=== PATIENT | male | born 1985 | race Two or more races ===

== ENCOUNTER 2016-08-09 13:11 | Emergency (ER) | payer OTHER ==
[~2016-08-09] VITALS: Ht 175.3 cm; Wt 81.6 kg
[~2016-08-09 13:11] MED LIST: ACETAMINOPHEN-1 EAC1 ORAL; ALBUTEROL SULF8.5 GM INH; AMOXICILLIN500 MG ORAL; AUGMENTIN 875-1 EAC1 ORAL; CYCLOBENZAPRINE10 MG ORAL; IBUPROFEN600 M1 PO; IBUPROFEN600 MG ORAL; IBUPROFEN600 MG PO; KEFLEX500 MG ORAL; NKM; NKMED; NORCO 5-325 TA1 EACH ORAL; TESSALON PERLE100 M2 ORAL
[2016-08-09] MEDS ORDERED: PROAIR HFA8.5 GM INH (13:36)
[2016-08-09] MEDS ORDERED: TYLENOL EXTRA500 MG ORAL (13:36)
[2016-08-09] MEDS ORDERED: ROBITUSSIN COU118 M4 PO (13:36)
[2016-08-09] MEDS ORDERED: PREDNISONE20 MG ORAL (13:36)
[2016-08-09] MEDS ORDERED: Ketorolac 30mg Inj IM ONE (13:45)
[2016-08-09 13:51] VITALS: BP 141/84
[2016-08-09 13:54] VITALS: BP 141/84
--- NOTE | 2016-08-09 20:48 | Emergency Room Report ---
History of Present Illness General Chief Complaint: Flu Like Symptoms Source: Patient Present Illness HPI The patient is a 31-year-old male presenting for one week of subjective fever, productive cough, and chills. The patient also admits to a 5/10 headache which is described as a dull ache to the posterior region. The patient denies sick contacts or recent travel. The patient has not tried any medications. The patient denies other symptoms including nausea, vomiting, neck pain or stiffness , blurry vision, fatigue, chest pain, shortness of breath Allergies: Coded Allergies: No Known Allergies (Unverified , 12/30/15) Patient History Past Medical History: see triage record Pertinent Family History: none Reviewed Nursing Documentation: PMH: Agreed, PSxH: Agreed Nursing Documentation-PMH Hx Cardiac Problems: Yes Review of Systems All Other Systems: negative except mentioned in HPI Physical Exam Vital Signs Date Time Temp Pulse Resp B/P Pulse Ox O2 Delivery O2 Flow Rate FiO2 08/09/16 13:16 98.2 103 20 141/84 98 Room Air Sp02 EP Interpretation: reviewed, normal General Appearance: no apparent distress, alert, GCS 15, non-toxic Head: normocephalic, atraumatic Eyes: bilateral eye PERRL, bilateral eye normal inspection ENT: hearing grossly normal, normal pharynx, no angioedema, normal voice, TMs + canals normal, uvula midline, moist mucus membranes Neck: full range of motion, no bony tend, supple/symm/no masses Respiratory: chest non-tender, no accessory muscle use, speaking full sentences , wheezing - bilat Cardiovascular #1: regular rate, rhythm, no edema Gastrointestinal: normal bowel sounds, non tender, soft, non-distended, no guarding, no rebound Rectal: deferred Musculoskeletal: back normal, gait/station normal, normal range of motion, non- tender Neurologic: alert, oriented x3, responsive, motor strength/tone normal, sensory intact, speech normal Psychiatric: judgement/insight normal, memory normal, mood/affect normal, no suicidal/homicidal ideation Skin: normal color, no rash, warm/dry, well hydrated Lymphatic: no adenopathy Medical Decision Making PA Attestation Dr. Salazar is my supervising physician. Patient management was discussed with my supervising physician Diagnostic Impression: Primary Impression: Bronchitis ER Course The patient is a 31-year-old male presenting for one week of subjective fever, productive cough, and chills. Differential diagnosis include but not limited to pharyngitis, sinusitis, AOM, bronchitis, PNA PE: No apparent distress. Afebrile No TTP over maxillary or frontal sinuses. Lungs Diffuse bilat wheezing. Good breath sounds. No accessory muscle use. Heart: RRR, no abnormal heart sounds Ears: external auditory canal clear. Non erythematous. Bilat TM intact. Cone of light present bilat. No bulging of TM. No serous fluid seen. no cervical lymphad No tonsillar exudate. Uvula midline.Oropharynx non erythematous The patient is given Toradol for pain with good relief. The patient be discharged home with a prescription for cough medication, albuterol, and a short course of steroids Last Vital Signs Date Time Temp Pulse Resp B/P Pulse Ox O2 Delivery O2 Flow Rate FiO2 08/09/16 13:56 98.2 08/09/16 13:54 98 20 141/84 98 Room Air Status: improved Disposition: HOME, SELF-CARE Condition: Improved Scripts Guaifenesin/Dextromethorphan (Robitussin Cough-Chest Dm Liq) 118 Ml Liquid 10 ML PO Q4HR, #118 ML Prov: TERZIAN,JUSTYNA P.A. 08/09/16 Prednisone* (PREDNISONE*) 20 Mg Tablet 20 MG ORAL DAILY, #5 TAB 0 Refills Prov: TERZIAN,JUSTYNA P.A. 08/09/16 Albuterol Sulfate* (PROAIR HFA*) 8.5 Gm Hfa.aer.ad 2 PUFFS INH Q6H, #8.5 GM 0 Refills Prov: TERZIAN,JUSTYNA P.A. 08/09/16 Acetaminophen* (TYLENOL EXTRA STRENGTH*) 500 Mg Tablet 500 MG ORAL Q8H Y for Prn Headache/Temp > 101, #30 TAB 0 Refills Prov: TERZIAN,JUSTYNA P.A. 08/09/16 Referrals: KATE NAVA,REFERRING (PCP) Patient Instructions: Acute Bronchitis Additional Instructions: I discussed my findings with the patient. All questions and concerns have been answered. Treatment and medication compliance have been addressed. I advised the patient that they need to follow up with PMD in 3-5 days. Return to ED if pain remains or worsens, cough worsens or remains, you notice blood in your sputum, you notice wheezing, you experience a fever, or if needed for any reason. Patient verbalized understanding of discharge instructions. JUSTYNA GAUTHIER Aug 09, 2016 20:48
== END 2016-08-09 13:50 | disposition home or self-care (01) ==
LOC: EMR 13:45
DX: J40 Bronchitis, not specified as acute or chronic (principal)
CPT/HCPCS: 96372; 99283; J1885

== ENCOUNTER 2016-08-15 08:18 | Emergency (ER) | payer OTHER ==
[~2016-08-15] VITALS: Ht 177.8 cm; Wt 86.2 kg
[~2016-08-15 08:18] MED LIST changes: +PREDNISONE20 MG ORAL; +PROAIR HFA8.5 GM INH; +ROBITUSSIN COU118 M4 PO; +TYLENOL EXTRA500 MG ORAL
[2016-08-15 08:31] VITALS: BP 129/75
--- NOTE | 2016-08-15 08:43 | Emergency Room Report ---
History of Present Illness General Chief Complaint: Upper Respiratory Illness Source: Patient Present Illness HPI Patient presents with complaints of continued cough and congestion He states that he was here recently given medications however the cough persist Patient feels ill Has mild headache Bodyache Denies any chest pain denies any back or flank pain Questionable intermittent fevers Denies any rash Allergies: Coded Allergies: No Known Allergies (Unverified , 12/30/15) Patient History Past Medical History: see triage record Pertinent Family History: none Reviewed Nursing Documentation: PMH: Agreed, PSxH: Agreed Nursing Documentation-PMH Past Medical History: No Stated History Hx Cardiac Problems: Yes Review of Systems All Other Systems: negative except mentioned in HPI Physical Exam Vital Signs Date Time Temp Pulse Resp B/P Pulse Ox O2 Delivery O2 Flow Rate FiO2 08/15/16 08:23 97.7 127 20 129/75 97 Room Air Sp02 EP Interpretation: reviewed, normal General Appearance: no apparent distress Head: normocephalic, atraumatic Eyes: bilateral eye EOMI, bilateral eye PERRL ENT: hearing grossly normal, normal pharynx, TMs + canals normal, uvula midline Neck: full range of motion, supple, no meningismus, no bony tend Respiratory: no rhonchi, no respiratory distress, no retraction, no accessory muscle use, crackles - In both lower lobes Cardiovascular #1: normal peripheral pulses, regular rate, rhythm, no edema, no gallop, no JVD, no murmur Gastrointestinal: normal bowel sounds, non tender, soft, no mass, no organomegaly, non-distended, no guarding, no hernia, no pulsatile mass, no rebound Genitourinary: no CVA tenderness Musculoskeletal: normal inspection Neurologic: oriented x3, responsive, senior software qa engineer III-XII nml as tested, motor strength/ tone normal, sensory intact Psychiatric: mood/affect normal Skin: normal color, no rash, warm/dry, palpation normal Lymphatic: normal inspection, no adenopathy Medical Decision Making Diagnostic Impression: Primary Impression: Upper respiratory infection Additional Impression: Acute bronchitis ER Course Patient's imaging study was negative Patient was here recently with similar complaints Provided with symptomatic relief patient continues to do well I feel the findings are likely in line With a viral URI Given the appropriate imaging and patient's improvement he is stable for close outpatient followup Chest X-Ray Diagnostic Results EP Interpretation: Yes Findings: no consolidation, no effusion, no pneumothorax Number of Views: 1 Last Vital Signs Date Time Temp Pulse Resp B/P Pulse Ox O2 Delivery O2 Flow Rate FiO2 08/15/16 08:31 127 20 Room Air 08/15/16 08:31 97.7 129/75 97 Status: improved Disposition: HOME, SELF-CARE Condition: Improved Scripts Promethazine HCl/Codeine (Prometh-Codein 6.25-10 mg/5 ml) 5 Ml Syrup 5 ML PO QHS for 5 Days, ML Prov: SINAN ERVIN D.O. 08/15/16 Referrals: KATE NAVA,REFERRING (PCP) Additional Instructions: Patient is provided with the discharge instructions notified to follow up with primary doctor in the next 2-3 days otherwise return to the er with any worsening symptoms. SINAN ERVIN D.O. Aug 15, 2016 08:43
[2016-08-15] MEDS ORDERED: Ketorolac 60mg Inj IM ONE (08:45)
[2016-08-15] MEDS ORDERED: LEVAQUIN500 MG ORAL (09:36)
[2016-08-15] MEDS ORDERED: PROMETH-CODEIN 65 ML PO (09:36)
[2016-08-15 09:40] VITALS: BP 125/78
--- NOTE | 2016-08-15 09:56 | Diagnostic Imaging Report ---
Indication: Cough Technique: XRAY CHEST 1 V Comparison: 08/27/13 Findings: Cardiomediastinal silhouette is stable. There is no consolidation or pleural effusion. Chronic deformity is again noted of the right clavicle. Impression: No acute cardiopulmonary disease.
== END 2016-08-15 09:44 | disposition home or self-care (01) ==
LOC: EMR 08:38
DX: J06.9 Acute upper respiratory infection, unspecified (principal); J20.9 Acute bronchitis, unspecified; R51 Headache
CPT/HCPCS: 71010; 96372; 99283

== ENCOUNTER 2016-10-02 17:33 | Emergency (ER) | payer OTHER ==
[~2016-10-02] VITALS: Ht 175.3 cm; Wt 81.6 kg
[~2016-10-02 17:33] MED LIST changes: +LEVAQUIN500 MG ORAL; +PROMETH-CODEIN 65 ML PO
[2016-10-02] MEDS: Mylanta II UD 30ml ORAL ONE (18:33)
[2016-10-02] MEDS: Lidocaine 2% Visc 15ml soln ORAL ONE (18:33)
[2016-10-02] MEDS: Dicyclomine HCl 10mg/5ml oral soln ORAL ONE (18:33)
[2016-10-02] MEDS ORDERED: TYLENOL EXTRA500 MG ORAL (19:10)
[2016-10-02] MEDS ORDERED: ZOFRAN4 M1 ORAL (19:10)
[2016-10-02] MEDS ORDERED: PEPCID20 MG ORAL (19:10)
[2016-10-02 19:49] VITALS: BP 153/93
--- NOTE | 2016-10-02 21:27 | Emergency Room Report ---
History of Present Illness General Chief Complaint: Abdominal Pain Source: Patient Present Illness HPI The patient is a 31-year-old male presenting with abdominal pain and diarrhea which began yesterday after eating at a food truck. The patient states that he has had 5 episodes of watery diarrhea since last night. She describes abdominal pain as an 8/10 dull ache to the mid upper abdomen and does not radiate. Pain is worse with defecation. The patient denies any nausea or vomiting. Pt denies melena, hematochezia,fever, chills Allergies: Coded Allergies: No Known Allergies (Unverified , 12/30/15) Patient History Past Medical History: see triage record Pertinent Family History: none Reviewed Nursing Documentation: PMH: Agreed, PSxH: Agreed Nursing Documentation-PMH Past Medical History: No Stated History Hx Cardiac Problems: Yes Review of Systems All Other Systems: negative except mentioned in HPI Physical Exam Vital Signs Date Time Temp Pulse Resp B/P Pulse Ox O2 Delivery O2 Flow Rate FiO2 10/02/16 18:06 98.2 96 16 153/93 100 Room Air Sp02 EP Interpretation: reviewed, normal General Appearance: no apparent distress, alert, GCS 15, non-toxic Head: normocephalic, atraumatic Eyes: bilateral eye PERRL, bilateral eye normal inspection ENT: hearing grossly normal, normal pharynx, no angioedema, normal voice Neck: full range of motion, supple/symm/no masses Respiratory: chest non-tender, lungs clear, normal breath sounds, speaking full sentences Gastrointestinal: normal bowel sounds, non-distended, no guarding, tenderness - epigastric Rectal: deferred Genitourinary: normal inspection, no CVA tenderness Musculoskeletal: back normal, gait/station normal, normal range of motion, non- tender Neurologic: alert, oriented x3, responsive, motor strength/tone normal, sensory intact, speech normal Psychiatric: judgement/insight normal, memory normal, mood/affect normal, no suicidal/homicidal ideation Skin: normal color, no rash, warm/dry, well hydrated Lymphatic: no adenopathy Medical Decision Making PA Attestation Dr. Covington is my supervising physician. Patient management was discussed with my supervising physician Diagnostic Impression: Primary Impression: Gastroenteritis ER Course The patient is a 31-year-old male presenting with abdominal pain and diarrhea which began yesterday after eating at a food truck. Differential diagnoses considered include but not limited to gastroenteritis, pancreatitis, appendicitis Physical exam: Afebrile. No apparent distress Abdomen is soft. Tenderness to palpation over epigastric region only. Non distended. No guarding. Normal bowel sounds. No CVA tenderness The patient is given a GI cocktail and Zofran and is feeling better. The patient is discharged home with a prescription for Tylenol, Zofran, and Pepcid. ER precautions are given. Patient will take in plenty of fluids and rest. Last Vital Signs Date Time Temp Pulse Resp B/P Pulse Ox O2 Delivery O2 Flow Rate FiO2 10/02/16 19:49 98.2 75 16 153/93 100 Room Air Status: improved Disposition: HOME, SELF-CARE Condition: Improved Scripts Acetaminophen* (TYLENOL EXTRA STRENGTH*) 500 Mg Tablet 500 MG ORAL Q8H Y for Prn Headache/Temp > 101, #30 TAB 0 Refills Prov: JUSTYNA GAUTHIER P.A. 10/02/16 Ondansetron (Zofran) 4 Mg Tablet 4 MG ORAL Q6H Y for Nausea & Vomiting, #10 TAB Prov: TERZIANJUSTYNA P.A. 10/02/16 Famotidine (PEPCID) 20 Mg Tablet 20 MG ORAL DAILY, #7 TAB 0 Refills Prov: JUSTYNA GAUTHIER P.A. 10/02/16 Referrals: KATE NAVA,REFERRING (PCP) Patient Instructions: Diarrhea, Adult Additional Instructions: I discussed my findings with the patient. All questions and concerns have been answered. Treatment and medication compliance have been addressed. I advised the patient that they need to follow up with PMD in 3-5 days. Return to ED if symptoms worsen, new symptoms arise, or if needed for any reason. Patient verbalized understanding of discharge instructions. JUSTYNA GAUTHIER Oct 02, 2016 21:26
== END 2016-10-02 19:49 | disposition home or self-care (01) ==
LOC: EMR 18:32
DX: K52.9 Noninfective gastroenteritis and colitis, unspecified (principal); R19.7 Diarrhea, unspecified; R10.10 Upper abdominal pain, unspecified; Z86.79 Personal history of other diseases of the circulatory system
CPT/HCPCS: 99284

== ENCOUNTER 2016-11-13 18:01 | Emergency (ER) | payer OTHER ==
[~2016-11-13] VITALS: Ht 177.8 cm; Wt 81.6 kg
[~2016-11-13 18:01] MED LIST changes: +PEPCID20 MG ORAL; +ZOFRAN4 M1 ORAL
[2016-11-13 19:14] VITALS: BP 128/78
[2016-11-13] MEDS ORDERED: Dicyclomine HCl 10mg/5ml oral soln ORAL ONE (19:15)
[2016-11-13] MEDS ORDERED: Mylanta II UD 30ml ORAL ONE (19:15)
[2016-11-13] MEDS ORDERED: Lidocaine 2% Visc 15ml soln ORAL ONE (19:15)
[2016-11-13] MEDS ORDERED: ZOFRAN4 M3 ORAL (19:52)
[2016-11-13 20:03] VITALS: BP 133/74
--- NOTE | 2016-11-13 21:16 | Emergency Room Report ---
History of Present Illness General Chief Complaint: Diarrhea Source: Patient Present Illness HPI The patient is a 31-year-old male presenting for abdominal pain and diarrhea which began yesterday. The patient states that symptoms began after eating possibly old chicken. Patient states his coworker ate the same thing and experiencing symptoms. Pain is described as a 10 out of 10 dull ache to the mid upper abdomen and is worse with bowel movements. Pain does not radiate. He denies any other symptoms including Vomiting, SOB, CP, F, chills, BEASLEY, dizziness, blurred vision, rash Allergies: Coded Allergies: No Known Allergies (Unverified , 12/30/15) Patient History Past Medical History: see triage record Pertinent Family History: none Reviewed Nursing Documentation: PMH: Agreed, PSxH: Agreed Nursing Documentation-PMH Past Medical History: No Stated History Hx Cardiac Problems: Yes Review of Systems All Other Systems: negative except mentioned in HPI Physical Exam Vital Signs Date Time Temp Pulse Resp B/P Pulse Ox O2 Delivery O2 Flow Rate FiO2 11/13/16 18:42 98.1 102 19 126/80 98 Room Air Sp02 EP Interpretation: reviewed, normal General Appearance: no apparent distress, alert, GCS 15, non-toxic Head: normocephalic, atraumatic Eyes: bilateral eye PERRL, bilateral eye normal inspection Respiratory: chest non-tender, lungs clear, normal breath sounds, no wheezing, speaking full sentences Cardiovascular #1: regular rate, rhythm, no edema Gastrointestinal: normal bowel sounds, soft, non-distended, no guarding, no rebound, tenderness - epigastric Genitourinary: normal inspection, no CVA tenderness Musculoskeletal: back normal, gait/station normal, normal range of motion, non- tender Neurologic: alert, oriented x3, responsive, motor strength/tone normal, sensory intact, speech normal Psychiatric: judgement/insight normal, memory normal, mood/affect normal, no suicidal/homicidal ideation Skin: normal color, no rash, warm/dry, well hydrated Lymphatic: no adenopathy Medical Decision Making PA Attestation Dr. Covington is my supervising physician. Patient management was discussed with my supervising physician Diagnostic Impression: Primary Impression: Gastroenteritis ER Course The patient is a 31-year-old male presenting for abdominal pain and diarrhea which began yesterday Differential diagnoses considered but not limited to: Gastroenteritis, GERD, gastritis, appendicitis, pancreatitis PE: Vitals WNL. NAD. Abdomen: Normal appearance. Non distended. No ecchymosis. Increased BS. + Epigastric TTP. No McBurney point tenderness. No guarding. No CVA tenderness The patient is given a GI cocktail and Tylenol and is feeling better He'll be discharged home with a prescription for Zofran and will take in plenty fluids.BRAT diet instructions given. ER precautions given Last Vital Signs Date Time Temp Pulse Resp B/P Pulse Ox O2 Delivery O2 Flow Rate FiO2 11/13/16 20:03 98.2 88 16 133/74 100 Room Air Status: improved Disposition: HOME, SELF-CARE Condition: Improved Scripts Ondansetron* (ZOFRAN*) 4 Mg Tablet 4 MG ORAL Q6H Y for Nausea & Vomiting, #15 TAB Prov: JUSTYNA GAUTHIER 11/13/16 Referrals: KATE NAVA,REFERRING (PCP) Patient Instructions: Viral Gastroenteritis, Adult Additional Instructions: I discussed my findings with the patient. All questions and concerns have been answered. Treatment and medication compliance have been addressed. I advised the patient that they need to follow up with PMD in 3-5 days. Return to ED if symptoms worsen, new symptoms arise, or if needed for any reason. Patient verbalized understanding of discharge instructions. JUSTYNA GAUTHIER Nov 13, 2016 21:16
== END 2016-11-13 20:04 | disposition home or self-care (01) ==
LOC: EMR 20:00
DX: K52.9 Noninfective gastroenteritis and colitis, unspecified (principal)
CPT/HCPCS: 99283

== ENCOUNTER 2017-05-18 10:29 | Emergency (ER) | payer OTHER ==
[~2017-05-18] VITALS: Ht 177.8 cm; Wt 81.6 kg
[~2017-05-18 10:29] MED LIST changes: +ZOFRAN4 M3 ORAL
[2017-05-18 10:41] VITALS: BP 141/79
[2017-05-18] MEDS ORDERED: PROMETHAZINE-C118 M1 ORAL (11:12)
[2017-05-18] MEDS ORDERED: ALBUTEROL SULF8.5 GM INH (11:12)
[2017-05-18] MEDS ORDERED: PREDNISONE20 MG ORAL (11:12)
[2017-05-18] MEDS ORDERED: Promethazine/Codeine 5ml UD ORAL ONE (11:15)
[2017-05-18 11:28] VITALS: BP 137/79
--- NOTE | 2017-05-18 15:36 | Emergency Room Report ---
History of Present Illness General Chief Complaint: Upper Respiratory Illness Source: Patient Present Illness HPI 32-year-old male presents ED complaining of cough for 5 days. States cough is dry. Denies fevers chills. Denies earache or sore throat. Patient denies history of smoking or asthma. Denies sick contacts or recent travel. No other aggravating relieving factors. Denies any other associated symptoms Allergies: Coded Allergies: No Known Allergies (Unverified , 12/30/15) Patient History Past Medical History: none Past Surgical History: none Pertinent Family History: none Social History: Denies: smoking, alcohol use, drug use Immunizations: UTD Reviewed Nursing Documentation: PMH: Agreed, PSxH: Agreed Nursing Documentation-PMH Past Medical History: No Stated History Hx Cardiac Problems: Yes Review of Systems All Other Systems: negative except mentioned in HPI Physical Exam Vital Signs Date Time Temp Pulse Resp B/P (MAP) Pulse Ox O2 Delivery O2 Flow Rate FiO2 05/18/17 10:41 98.2 101 22 141/79 96 Room Air Sp02 EP Interpretation: reviewed, normal General Appearance: no apparent distress, alert, GCS 15, non-toxic Head: normocephalic, atraumatic Eyes: bilateral eye normal inspection, bilateral eye PERRL ENT: hearing grossly normal, normal pharynx, no angioedema, normal voice Neck: full range of motion, supple/symm/no masses Respiratory: chest non-tender, lungs clear, normal breath sounds, speaking full sentences Cardiovascular #1: regular rate, rhythm, no edema Cardiovascular #2: 2+ carotid (R), 2+ carotid (L), 2+ radial (R), 2+ radial (L) , 2+ dorsalis pedis (R), 2+ dorsalis pedis (L) Gastrointestinal: normal bowel sounds, non tender, soft, non-distended, no guarding, no rebound Rectal: deferred Genitourinary: normal inspection, no CVA tenderness Musculoskeletal: back normal, gait/station normal, normal range of motion, non- tender Neurologic: alert, oriented x3, responsive, motor strength/tone normal, sensory intact, speech normal Psychiatric: judgement/insight normal, memory normal, mood/affect normal, no suicidal/homicidal ideation Reflexes: 3+ bicep (R), 3+ bicep (L), 3+ tricep (R), 3+ tricep (L), 3+ knee (R) , 3+ knee (L) Skin: normal color, no rash, warm/dry, well hydrated Lymphatic: no adenopathy Medical Decision Making Diagnostic Impression: Primary Impression: Bronchitis ER Course Hospital Course 32-year-old male presents to ED complaining of cough x 5 days Differential diagnoses include: URI, pharyngitis, otitis media, asthma Clinical course Patient placed on stretcher. After initial history, physical exam reveals a male in no acute distress. Bilateral TM unremarkable. No pharyngeal erythema. No tonsillar exudates. No lymphadenopathy. lungs clear. abdomen soft. Clinical findings consistent with bronchitis. given promethazine/codeine in ED Diagnosis - bronchitis Stable and discharged home with Rx albuterol, cough syrup, prednisone. Instructed to followup with PMD. Return to ED if symptoms recur or worsen Last Vital Signs Date Time Temp Pulse Resp B/P (MAP) Pulse Ox O2 Delivery O2 Flow Rate FiO2 05/18/17 11:28 98.2 97 20 137/79 98 Room Air Status: improved Disposition: HOME, SELF-CARE Condition: Stable Scripts Prednisone* (PREDNISONE*) 20 Mg Tablet 40 MG ORAL DAILY, #10 TAB Prov: GILDARDO MUNGUIA M.D. 05/18/17 Albuterol Sulfate* (ALBUTEROL SULFATE MDI*) 8.5 Gm Hfa.aer.ad 2 PUFF INH Q4H Y for cough/wheezing, #1 EA 0 Refills Prov: GILDARDO MUNGUIA M.D. 05/18/17 Codeine/Promethazine Hcl* (PROMETHAZINE-CODEINE SYRUP*) 118 Ml Syrup 5 ML ORAL Q4H Y for For Cough, #118 ML 0 Refills Prov: GILDARDO MUNGUIA M.D. 05/18/17 Referrals: KATE NAVA,REFERRING (PCP) Patient Instructions: Acute Bronchitis, [id number] GILDARDO MUNGUIA M.D. May 18, 2017 15:36
== END 2017-05-18 11:28 | disposition home or self-care (01) ==
LOC: EMR 11:16
DX: J40 Bronchitis, not specified as acute or chronic (principal)
CPT/HCPCS: 99284

== ENCOUNTER 2017-07-23 18:05 | Emergency (ER) | payer OTHER ==
[~2017-07-23] VITALS: Ht 177.8 cm; Wt 90.7 kg
[~2017-07-23 18:05] MED LIST changes: +PROMETHAZINE-C118 M1 ORAL
[2017-07-23] MEDS ORDERED: Promethazine/Codeine 5ml UD ORAL ONE (18:45)
[2017-07-23] MEDS ORDERED: Albuterol ud Inhalation HHN ONE (18:45)
--- NOTE | 2017-07-23 19:14 | Emergency Room Report ---
History of Present Illness General Chief Complaint: Flu Like Symptoms Present Illness HPI 32-year-old male presents to the emergency department complaining of dry persistent cough with scratching throat sensation times approximately 5 days he denies fevers or chills he reports some nasal congestion. Pt. reports scratching sensation in the throat makes him cough persistently. denies rashes or swelling of the lips or tongue. Patient also reported some left-sided toothache several days ago however he reports that at 10 in severity pain at this time. Patient eyes neck pain, stiffness, photophobia he denies. Recent travel or ill contacts. Patient does not know if he is up-to-date with flu vaccination however he is up-to-date with all other vaccines. Patient denies history of asthma, COPD or smoking history.Denies CP, Palpitations, LOC, AMS, dizziness, Changes in Vision, Sensation, paresthesias, or a sudden severe headache. Allergies: Coded Allergies: No Known Allergies (Unverified , 12/30/15) Patient History Past Medical History: see triage record Past Surgical History: none Pertinent Family History: none Immunizations: UTD Reviewed Nursing Documentation: PMH: Agreed, PSxH: Agreed Nursing Documentation-PMH Hx Cardiac Problems: Yes Review of Systems All Other Systems: negative except mentioned in HPI Physical Exam Vital Signs Date Time Temp Pulse Resp B/P (MAP) Pulse Ox O2 Delivery O2 Flow Rate FiO2 07/23/17 18:22 99.5 101 20 166/94 98 Room Air Sp02 EP Interpretation: reviewed, normal General Appearance: no apparent distress, alert, GCS 15, non-toxic, mild distress - persisitent coughing difficulty to speak full sentence. Head: normocephalic, atraumatic ENT: hearing grossly normal, no angioedema, normal voice, TMs + canals normal, uvula midline Neck: full range of motion, supple/symm/no masses Respiratory: speaking full sentences, wheezing - bilateral wheezes, no ronchi or rales. Cardiovascular #1: regular rate, rhythm, normal capillary refill Gastrointestinal: non tender, soft Musculoskeletal: back normal, gait/station normal, normal range of motion, non- tender Neurologic: alert, oriented x3, responsive, motor strength/tone normal, sensory intact, normal gait, speech normal Skin: normal color, no rash, warm/dry, well hydrated Lymphatic: no adenopathy Medical Decision Making PA Attestation Dr. Mccray is my supervising Physician whom patient management has been discussed with. Diagnostic Impression: Primary Impression: Acute bronchitis Qualified Codes: J20.9 - Acute bronchitis, unspecified Additional Impression: Upper respiratory infection Qualified Codes: J06.9 - Acute upper respiratory infection, unspecified; B97.89 - Other viral agents as the cause of diseases classified elsewhere ER Course 32-year-old male presents to the emergency department complaining of dry persistent cough with scratching throat sensation times approximately 5 days he denies fevers or chills he reports some nasal congestion. Pt. reports scratching sensation in the throat makes him cough persistently. denies rashes or swelling of the lips or tongue. Patient also reported some left-sided toothache several days ago however he reports that at 10 in severity pain at this time. Patient eyes neck pain, stiffness, photophobia he denies. Recent travel or ill contacts. Patient does not know if he is up-to-date with flu vaccination however he is up-to-date with all other vaccines. Patient denies history of asthma, COPD or smoking history.Denies CP, Palpitations, LOC, AMS, dizziness, Changes in Vision, Sensation, paresthesias, or a sudden severe headache. Ddx considered but are not limited to URI, pneumonia, PE, strep pharyngitis, meningitis. Vital signs: Pt. is afebrile, the remaining VS are WNL, non-toxic in appearance , mild distress due to persistent coughing. H&PE are most consistent with Bronchitis, will give HHN and cough syrup. pt. has very persistent dry cough during ED visit, and wheezes on auscultation. ORDERS: none required at this time, the diagnosis is clinical ED INTERVENTIONS: - Albuterol nebulized treatment. -Cough syrup PO DISCHARGE: At this time pt. is stable for d/c to home. Will provide printed patient care instructions, and any necessary prescriptions. Care plan and follow up instructions have been discussed with the patient prior to discharge. Last Vital Signs Date Time Temp Pulse Resp B/P (MAP) Pulse Ox O2 Delivery O2 Flow Rate FiO2 07/23/17 18:22 99.5 101 20 166/94 98 Room Air Disposition: HOME, SELF-CARE Condition: Stable Scripts Benzonatate* (TESSALON PERLE*) 100 Mg Capsule 100 MG ORAL THREE TIMES A DAY, #20 PERLE Prov: Moni Coelho 07/23/17 Albuterol Sulfate* (ALBUTEROL SULFATE MDI*) 8.5 Gm Hfa.aer.ad 2 PUFF INH Q3H, #1 INH 0 Refills Prov: Moni Coelho. 07/23/17 Acetaminophen* (TYLENOL EXTRA STRENGTH*) 500 Mg Tablet 500 MG ORAL Q6H Y for Mild Pain/Temp > 100.5, #20 TAB 0 Refills Prov: Moni Coelho 07/23/17 Codeine/Promethazine Hcl* (PROMETHAZINE-CODEINE SYRUP*) 118 Ml Syrup 5 ML ORAL Q6H Y for For Cough, #120 ML 0 Refills Prov: Moni Coelho 07/23/17 Patient Instructions: Acute Bronchitis, [id number], Upper Respiratory Infection, Adult, [id number] Additional Instructions: Take medications as directed. Follow up with a Primary Care Provider in 3-5 days, even if your symptoms have resolved. --Please review list of primary care clinics, if you do not already have a primary care provider Return sooner to ED if new symptoms occur, or current symptoms become worse. Do not drink alcohol, drive, or operate heavy machinery while taking Cough Syrup as this may cause drowsiness. - Please note that this Emergency Department Report was dictated using [employer] real [employer] app[employer] technology software, occasionally this can lead to erroneous entry secondary to interpretation by the dictation equipment. Moni Coelho Jul 23, 2017 19:14
[2017-07-23] MEDS ORDERED: ALBUTEROL SULF8.5 GM INH (19:15)
[2017-07-23] MEDS ORDERED: PROMETHAZINE-C118 M1 ORAL (19:15)
[2017-07-23] MEDS ORDERED: TESSALON PERLE100 MG ORAL (19:15)
[2017-07-23] MEDS ORDERED: TYLENOL EXTRA500 MG ORAL (19:15)
[2017-07-24 03:20] VITALS: BP 164/93
== END 2017-07-23 20:30 | disposition home or self-care (01) ==
LOC: EMR 20:30
DX: J20.9 Acute bronchitis, unspecified (principal); J06.9 Acute upper respiratory infection, unspecified; R09.89 Other specified symptoms and signs involving the circulatory and respiratory systems; Z86.79 Personal history of other diseases of the circulatory system
CPT/HCPCS: 94640; 99284

== ENCOUNTER 2018-08-08 11:18 | Emergency (ER) | payer OTHER ==
[~2018-08-08] VITALS: Ht 177.8 cm; Wt 81.6 kg
[~2018-08-08 11:18] MED LIST changes: +TESSALON PERLE100 MG ORAL
[2018-08-08 11:36] VITALS: BP 135/85
[2018-08-08] MEDS ORDERED: PROMETHAZINE-C118 M1 ORAL (12:00)
[2018-08-08] MEDS ORDERED: PREDNISONE20 MG ORAL (12:00)
[2018-08-08] MEDS ORDERED: TAMIFLU75 MG ORAL (12:00)
[2018-08-08] MEDS ORDERED: ALBUTEROL SULF8.5 GM INH (12:00)
[2018-08-08 12:05] VITALS: BP 120/74
--- NOTE | 2018-08-10 07:08 | Emergency Room Report ---
History of Present Illness General Chief Complaint: Upper Respiratory Illness Source: Patient Present Illness HPI 33-year-old male presents ED for evaluation. Complaining of cough 4 days. Productive with yellowish phlegm. Denies fevers or chills. Denies shortness of breath. Denies sore throat or earache. Denies sick contacts or recent travel. Denies smoking. No other aggravating relieving factors. Denies any other associated symptoms Allergies: Coded Allergies: No Known Allergies (Unverified , 08/08/18) Patient History Past Medical History: none Past Surgical History: none Pertinent Family History: none Social History: Denies: smoking, alcohol use, drug use Immunizations: UTD Reviewed Nursing Documentation: PMH: Agreed; PSxH: Agreed Nursing Documentation-PMH Past Medical History: No Stated History Hx Cardiac Problems: No Review of Systems All Other Systems: negative except mentioned in HPI Physical Exam Vital Signs Date Time Temp Pulse Resp B/P (MAP) Pulse Ox O2 Delivery O2 Flow Rate FiO2 08/08/18 11:22 97.9 94 16 139/81 97 Room Air 08/08/18 11:36 95 Sp02 EP Interpretation: reviewed, normal General Appearance: no apparent distress, alert, GCS 15, non-toxic Head: normocephalic, atraumatic Eyes: bilateral eye normal inspection, bilateral eye PERRL ENT: hearing grossly normal, normal pharynx, no angioedema, normal voice Neck: full range of motion, supple/symm/no masses Respiratory: chest non-tender, lungs clear, normal breath sounds, speaking full sentences Cardiovascular #1: regular rate, rhythm, no edema Cardiovascular #2: 2+ carotid (R), 2+ carotid (L), 2+ radial (R), 2+ radial (L) , 2+ dorsalis pedis (R), 2+ dorsalis pedis (L) Gastrointestinal: normal bowel sounds, non tender, soft, non-distended, no guarding, no rebound Rectal: deferred Genitourinary: normal inspection, no CVA tenderness Musculoskeletal: back normal, gait/station normal, normal range of motion, non- tender Neurologic: alert, oriented x3, responsive, motor strength/tone normal, sensory intact, speech normal Psychiatric: judgement/insight normal, memory normal, mood/affect normal, no suicidal/homicidal ideation Reflexes: 3+ bicep (R), 3+ bicep (L), 3+ tricep (R), 3+ tricep (L), 3+ knee (R) , 3+ knee (L) Skin: normal color, no rash, warm/dry, well hydrated Lymphatic: no adenopathy Medical Decision Making Diagnostic Impression: Primary Impression: Acute bronchitis Qualified Codes: J20.9 - Acute bronchitis, unspecified ER Course Hospital Course 33-year-old male presents to ED complaining of cough Differential diagnoses include: URI, pharyngitis, otitis media, asthma Clinical course Patient placed on stretcher. After initial history, physical exam reveals a young male in no acute distress. Bilateral TM unremarkable. No pharyngeal erythema. No tonsillar exudates. No lymphadenopathy. lungs clear. abdomen soft. Clinical findings consistent with bronchitis. Reassurance given to parents. treatment is supportive therapy We'll provide prescription for inhaler, cough medication. Safely discharged with close outpatient follow-up. We'll provide referrals Diagnosis - bronchitis Stable and discharged home with Rx albuterol, promethazine/codeine. Instructed to followup with PMD. Return to ED if symptoms recur or worsen Last Vital Signs Date Time Temp Pulse Resp B/P (MAP) Pulse Ox O2 Delivery O2 Flow Rate FiO2 08/08/18 12:05 98.0 88 20 120/74 98 Room Air 08/08/18 11:36 95 Status: improved Disposition: HOME, SELF-CARE Condition: Stable Scripts Albuterol Sulfate* (ALBUTEROL SULFATE MDI*) 8.5 Gm Hfa.aer.ad 2 PUFF INH Q6H, #1 EA 0 Refills Prov: Brock Covington MD 08/08/18 Prednisone* (PREDNISONE*) 20 Mg Tablet 40 MG ORAL DAILY, #10 TAB Prov: Brock Covington MD 08/08/18 Codeine/Promethazine Hcl* (PROMETHAZINE-CODEINE SYRUP*) 118 Ml Syrup 5 ML ORAL Q6H PRN for For Cough, #118 ML 0 Refills Prov: Brock Covington MD 08/08/18 Oseltamivir Phosphate (Tamiflu) 75 Mg Capsule 75 MG ORAL TWICE A DAY for 5 Days, CAP Prov: Brock Covington MD 08/08/18 Referrals: KATE NAVA,REFERRING (PCP) [facility] Patient Instructions: Acute Bronchitis, [id number] Brock Covington MD Aug 10, 2018 07:08
== END 2018-08-08 12:06 | disposition home or self-care (01) ==
LOC: EMR 11:56
DX: J20.9 Acute bronchitis, unspecified (principal)
CPT/HCPCS: 99282

== ENCOUNTER 2018-10-19 19:25 | Emergency (ER) | payer OTHER ==
[~2018-10-19] VITALS: Ht 172.7 cm; Wt 79.4 kg
[~2018-10-19 19:25] MED LIST changes: +TAMIFLU75 MG ORAL
[2018-10-19 19:29] VITALS: BP 142/83
--- NOTE | 2018-10-19 19:29 | NUR ---
ED Nurse Note: Patient presents with complaints if recurrent sore throat and cough.
[2018-10-19] MEDS ORDERED: ALBUTEROL SULF8.5 GM INH (19:42)
[2018-10-19] MEDS ORDERED: PROMETHAZINE-C118 M1 ORAL (19:42)
[2018-10-19 19:54] VITALS: BP 142/83
--- NOTE | 2018-10-19 19:54 | NUR ---
ED Nurse Note: Patient discharged in stable condition, no s/s of acute distress. Patient ambulatory with steady gait, departed to car with all personal belongings.
[2018-10-19] MEDS ORDERED: Lidocaine 2% Visc 15ml soln ORAL ONE (20:00)
--- NOTE | 2018-10-21 14:08 | Emergency Room Report ---
History of Present Illness General Chief Complaint: Upper Respiratory Illness Source: Patient Present Illness HPI 33-year-old male presents ED for evaluation. Complaining of cough and congestion and sore throat for 1 week. Pain is dull, 7 out of 10, nonradiating. States cough is dry. Denies fevers or chills. Denies earache. Denies sick contacts or recent travel. No other aggravating relieving factors. Denies any other associated symptoms Allergies: Coded Allergies: No Known Allergies (Unverified , 08/08/18) Patient History Past Medical History: none Past Surgical History: none Pertinent Family History: none Social History: Denies: smoking, alcohol use, drug use Immunizations: UTD Reviewed Nursing Documentation: PMH: Agreed; PSxH: Agreed Nursing Documentation-PMH Past Medical History: No History, Except For Hx Cardiac Problems: No Review of Systems All Other Systems: negative except mentioned in HPI Physical Exam Vital Signs Date Time Temp Pulse Resp B/P (MAP) Pulse Ox O2 Delivery O2 Flow Rate FiO2 10/19/18 19:29 95 18 Room Air 10/19/18 19:29 98.4 142/83 97 Sp02 EP Interpretation: reviewed, normal General Appearance: no apparent distress, alert, GCS 15, non-toxic Head: normocephalic, atraumatic Eyes: bilateral eye normal inspection, bilateral eye PERRL ENT: hearing grossly normal, normal pharynx, no angioedema, normal voice Neck: full range of motion, supple/symm/no masses Respiratory: chest non-tender, lungs clear, normal breath sounds, speaking full sentences Cardiovascular #1: regular rate, rhythm, no edema Cardiovascular #2: 2+ carotid (R), 2+ carotid (L), 2+ radial (R), 2+ radial (L) , 2+ dorsalis pedis (R), 2+ dorsalis pedis (L) Gastrointestinal: normal bowel sounds, non tender, soft, non-distended, no guarding, no rebound Rectal: deferred Genitourinary: normal inspection, no CVA tenderness Musculoskeletal: back normal, gait/station normal, normal range of motion, non- tender Neurologic: alert, oriented x3, responsive, motor strength/tone normal, sensory intact, speech normal Psychiatric: judgement/insight normal, memory normal, mood/affect normal, no suicidal/homicidal ideation Reflexes: 3+ bicep (R), 3+ bicep (L), 3+ tricep (R), 3+ tricep (L), 3+ knee (R) , 3+ knee (L) Skin: normal color, no rash, warm/dry, well hydrated Lymphatic: no adenopathy Medical Decision Making Diagnostic Impression: Primary Impression: Bronchitis ER Course Hospital Course 33-year-old male presents to ED complaining of cough, congestion and sore throat Differential diagnoses include: URI, pharyngitis, otitis media, asthma Clinical course Patient placed on stretcher. After initial history, physical exam reveals a male in no acute distress. Bilateral TM unremarkable. No pharyngeal erythema. No tonsillar exudates. No lymphadenopathy. lungs clear. abdomen soft. Clinical findings consistent with bronchitis. Patient states he's been given inhaler in the past with symptoms improved. Declined breathing treatment here. Given viscous lidocaine for comfort Safe for discharge or close outpatient follow-up. Patient does not have a PMD. We'll provide referrals Diagnosis - bronchitis Stable and discharged home with Rx albuterol, promethazine/codeine. Instructed to followup with PMD. Return to ED if symptoms recur or worsen Last Vital Signs Date Time Temp Pulse Resp B/P (MAP) Pulse Ox O2 Delivery O2 Flow Rate FiO2 10/19/18 19:54 98.4 95 18 142/83 97 Room Air Status: improved Disposition: HOME, SELF-CARE Condition: Stable Scripts Albuterol Sulfate* (ALBUTEROL SULFATE MDI*) 8.5 Gm Hfa.aer.ad 2 PUFF INH Q4H PRN for cough/wheezing, #1 EA 0 Refills Prov: Brock Covington MD 10/19/18 Codeine/Promethazine Hcl* (PROMETHAZINE-CODEINE SYRUP*) 118 Ml Syrup 5 ML ORAL Q4H PRN for For Cough, #118 ML 0 Refills Prov: Brock Covington MD 10/19/18 Referrals: KATE NAVA,REFERRING (PCP) [facility] Patient Instructions: Acute Bronchitis, [id number] Brock Covington MD Oct 21, 2018 14:08
== END 2018-10-19 19:55 | disposition home or self-care (01) ==
LOC: EMR 19:39
DX: J40 Bronchitis, not specified as acute or chronic (principal)
CPT/HCPCS: 99282

== ENCOUNTER 2019-04-05 22:12 | Emergency (ER) | payer OTHER ==
[~2019-04-05] VITALS: Ht 177.8 cm; Wt 90.7 kg
[2019-04-05 23:00] VITALS: BP 123/83
--- NOTE | 2019-04-05 23:00 | NUR ---
ER Nurse Note: Pt walked in c/o pain in RT areolal area d/t bug bite since 1 hr prior to arrival. Pt stated he felt " a sharp bite on chest and had to swat soething off chest". Skin intact, no warmth, slight redness noted. Skin flat; no drainage noted. Pt states 10/10 pain. Will continue to montior.
[2019-04-05 23:20] VITALS: BP 123/83
--- NOTE | 2019-04-05 23:20 | NUR ---
ER Nurse Note: Pt seen, treated, medically cleared for discharge by ERMD. Discharge instuctions and prescriptions given with repeat verbalization by pt. Emphasized to follow up with primay care provider; take whole course of medication. Explained each medication. All orders completed per ERMD orders. Pt a&ox4, VSS, no signs of distress. ID band removed. All questions answered per pt's questions. Pt left with all belongings, left with own transportation.
[2019-04-05] MEDS ORDERED: AUGMENTIN 875-1 EAC1 ORAL (23:27)
[2019-04-05] MEDS ORDERED: IBUPROFEN600 MG ORAL (23:27)
[2019-04-05] MEDS ORDERED: Augmentin 875mg Tab ORAL ONE (23:30)
--- NOTE | 2019-04-06 05:24 | Emergency Room Report ---
History of Present Illness General Chief Complaint: Skin Rash/Abscess Source: Patient Present Illness HPI 33-year-old male presents ED for evaluation. States there is a "spider bite" on his right chest which he noticed tonight. States it is painful, throbbing, 8 out of 10, nonradiating. Denies fevers or chills. Denies any discharge. No other aggravating relieving factors. Denies any other associated symptoms Allergies: Coded Allergies: No Known Allergies (Unverified , 08/08/18) Patient History Past Medical History: none Past Surgical History: none Pertinent Family History: none Social History: Denies: smoking, alcohol use, drug use Immunizations: UTD Reviewed Nursing Documentation: PMH: Agreed; PSxH: Agreed Nursing Documentation-PMH Past Medical History: No History, Except For Hx Cardiac Problems: No Review of Systems All Other Systems: negative except mentioned in HPI Physical Exam Vital Signs Date Time Temp Pulse Resp B/P (MAP) Pulse Ox O2 Delivery O2 Flow Rate FiO2 04/05/19 22:49 98.1 90 18 123/83 (96) 96 Room Air Sp02 EP Interpretation: reviewed, normal General Appearance: no apparent distress, alert, GCS 15, non-toxic Head: normocephalic Eyes: bilateral eye normal inspection, bilateral eye PERRL ENT: normal ENT inspection Neck: normal inspection Respiratory: normal inspection Cardiovascular #1: normal inspection Gastrointestinal: normal inspection Rectal: deferred Genitourinary: no CVA tenderness Musculoskeletal: normal inspection Neurologic: alert, oriented x3, responsive, motor strength/tone normal, sensory intact, speech normal Psychiatric: normal inspection Skin: other - 3x3cm area of erythema/induration to R side of chest next to R nipple. no fluctuance or discharge Lymphatic: normal inspection Medical Decision Making Diagnostic Impression: Primary Impression: Insect bite Qualified Codes: S20.361A - Insect bite (nonvenomous) of right front wall of thorax, initial encounter; W57.XXXA - Bitten or stung by nonvenomous insect and other nonvenomous arthropods, initial encounter ER Course Hospital Course 33-year-old male presents to ED with redness, pain to R side of chest Differential diagnoses include: Cellulitis, dermatitis, insect bite, abscess Clinical course Patient placed on stretcher. After initial history, physical exam reveals a male in no acute distress. On exam there is a site for mild erythema and induration to the right side of chest next to the nipple. No fluctuance or discharge. discussed findings with patient. Possible insect bite with infection. Will discharge with antibiotics. Given Motrin and Augmentin ED. Safe for discharge with close outpatient follow-up. Will provide referrals Diagnosis - insect bite stable and discharged to home with prescription for augmentin, motrin. warm compresses. Instructed to followup with PMD. Instructed return to ED if symptoms recur or worsen Last Vital Signs Date Time Temp Pulse Resp B/P (MAP) Pulse Ox O2 Delivery O2 Flow Rate FiO2 04/06/19 00:00 98.1 04/05/19 23:20 78 18 123/83 96 Room Air Status: improved Disposition: HOME, SELF-CARE Condition: Stable Scripts Amoxicillin/Potassium Clav 875-125* (AUGMENTIN 875-125 TABLET*) 1 Each Tablet 1 TAB ORAL TWICE A DAY, #14 TAB Prov: Brock Covington MD 04/05/19 Ibuprofen* (MOTRIN*) 600 Mg Tablet 600 MG ORAL THREE TIMES A DAY, #30 TAB 0 Refills Prov: Brock Covington MD 04/05/19 Referrals: NOT CHOSEN IPA/,REFERRING (PCP) [facility] Patient Instructions: Insect Bite, [id number] Brock Covington MD Apr 06, 2019 05:24
== END 2019-04-05 23:20 | disposition home or self-care (01) ==
LOC: EMR 23:10
DX: S20.361A Insect bite (nonvenomous) of right front wall of thorax, initial encounter (principal); W57.XXXA Bitten or stung by nonvenomous insect and other nonvenomous arthropods, initial encounter; Y92.9 Unspecified place or not applicable
CPT/HCPCS: 99282

== ENCOUNTER 2019-05-04 22:03 | Emergency (ER) | payer OTHER ==
[~2019-05-04] VITALS: Ht 177.8 cm; Wt 95.3 kg
[2019-05-04] MEDS ORDERED: NKM (22:13)
--- NOTE | 2019-05-04 22:20 | NUR ---
ED Nurse Note: Patient walked in to ER c/o headache 05/04. States that had terible headace x 2 days. AAO x4, VSS at this time.
[2019-05-04 22:30] VITALS: BP 129/69
--- NOTE | 2019-05-04 22:44 | Emergency Room Report ---
History of Present Illness General Chief Complaint: Headache Source: Patient Present Illness HPI Patient presents with complaints of headache slowly progressing over the past 3 days patient has had difficulty sleeping now complained of chills Body ache denies any neck pain or photophobia denies any vomiting or diarrhea patient denies any trauma He was taking ibuprofen and after the medicine wore off he would have a headache again denies any focal weakness denies any visual changes denies any recent travel Allergies: Coded Allergies: No Known Allergies (Unverified , 08/08/18) Patient History Past Medical History: see triage record Reviewed Nursing Documentation: PMH: Agreed; PSxH: Agreed Nursing Documentation-PM Past Medical History: No Stated History Hx Cardiac Problems: No Review of Systems All Other Systems: negative except mentioned in HPI Physical Exam Vital Signs Date Time Temp Pulse Resp B/P (MAP) Pulse Ox O2 Delivery O2 Flow Rate FiO2 05/04/19 22:10 98.8 98 18 129/69 (89) 100 Room Air Sp02 EP Interpretation: reviewed, normal General Appearance: well appearing, no apparent distress Head: normocephalic, atraumatic Eyes: bilateral eye PERRL, bilateral eye EOMI ENT: hearing grossly normal, normal pharynx, TMs + canals normal, uvula midline Neck: full range of motion, supple, no meningismus, no bony tend Respiratory: lungs clear, normal breath sounds, no rhonchi, no respiratory distress, no retraction, no accessory muscle use Cardiovascular #1: normal peripheral pulses, regular rate, rhythm, no edema, no gallop, no JVD, no murmur Gastrointestinal: normal bowel sounds, non tender, soft, no mass, no organomegaly, non-distended, no guarding, no hernia, no pulsatile mass, no rebound Genitourinary: no CVA tenderness Musculoskeletal: normal inspection Neurologic: oriented x3, responsive, county or city auditor III-XII nml as tested, motor strength/ tone normal, sensory intact Psychiatric: mood/affect normal Skin: no rash Lymphatic: normal inspection, no adenopathy Medical Decision Making Diagnostic Impression: Primary Impression: Headache ER Course Given the patient's history and presentation multiple differentials and consideration including but not limited to neurological, neurosurgical, infectious pathology such as meningitis, also flu symptoms Patient's blood work is at baseline levels CT imaging does not show any acute disease Patient has rested comfortably throughout his stay After several hours patient is awake now and feels significantly improved potassium level was mildly low which was provided in the ER And patient stable for close outpatient follow-up Labs Test 05/04/19 23:20 White Blood Count 8.1 K/UL (4.8-10.8) Red Blood Count 5.41 M/UL (4.70-6.10) Hemoglobin 15.7 G/DL (14.2-18.0) Hematocrit 45.4 % (42.0-52.0) Mean Corpuscular Volume 84 FL (80-99) Mean Corpuscular Hemoglobin 29.0 PG (27.0-31.0) Mean Corpuscular Hemoglobin Concent 34.6 G/DL (32.0-36.0) Red Cell Distribution Width 10.9 % (11.6-14.8) Platelet Count 242 K/UL (150-450) Mean Platelet Volume 5.7 FL (6.5-10.1) Neutrophils (%) (Auto) 72.7 % (45.0-75.0) Lymphocytes (%) (Auto) 16.9 % (20.0-45.0) Monocytes (%) (Auto) 8.9 % (1.0-10.0) Eosinophils (%) (Auto) 0.8 % (0.0-3.0) Basophils (%) (Auto) 0.7 % (0.0-2.0) Sodium Level 137 MMOL/L (136-145) Potassium Level 3.0 MMOL/L (3.5-5.1) Chloride Level 99 MMOL/L (98-107) Carbon Dioxide Level 31 MMOL/L (21-32) Anion Gap 7 mmol/L (5-15) Blood Urea Nitrogen 14 mg/dL (7-18) Creatinine 1.2 MG/DL (0.55-1.30) Estimat Glomerular Filtration Rate > 60 mL/min (>60) Glucose Level 97 MG/DL (74-106) Calcium Level 9.3 MG/DL (8.5-10.1) Total Bilirubin 0.5 MG/DL (0.2-1.0) Aspartate Amino Transf (AST/SGOT) 23 U/L (15-37) Alanine Aminotransferase (ALT/SGPT) 45 U/L (12-78) Alkaline Phosphatase 71 U/L (46-116) Total Protein 8.7 G/DL (6.4-8.2) Albumin 3.9 G/DL (3.4-5.0) Globulin 4.8 g/dL Albumin/Globulin Ratio 0.8 (1.0-2.7) CT/MRI/US Diagnostic Results CT/MRI/US Diagnostic Results : Impression CT head no acute disease Last Vital Signs Date Time Temp Pulse Resp B/P (MAP) Pulse Ox O2 Delivery O2 Flow Rate FiO2 05/04/19 22:10 98.8 98 18 129/69 (89) 100 Room Air Status: improved Disposition: HOME, SELF-CARE Condition: Improved Scripts Ibuprofen* (MOTRIN*) 600 Mg Tablet 600 MG ORAL Q8H PRN for For Pain, #20 TAB 0 Refills Prov: Vickey Mccray DO 05/05/19 Additional Instructions: Patient is provided with the discharge instructions notified to follow up with primary doctor in the next 2-3 days otherwise return to the er with any worsening symptoms. Please note that this report is being documented using [employer] technology. This can lead to erroneous entry secondary to incorrect interpretation by the dictating instrument. Vickey Mccray DO May 04, 2019 22:44
[2019-05-04] MEDS ORDERED: Ketorolac 30mg Inj IV ONE (22:45)
[2019-05-04] MEDS ORDERED: DiphenhydrAMINE 50mg/ml Inj IVP ONE (22:45)
[2019-05-04] MEDS ORDERED: Metoclopramide 10mg/2ml Inj IVP ONE (22:45)
[2019-05-04] MEDS ORDERED: DiphenhydrAMINE 50mg/ml Inj ONE (23:02)
[2019-05-04] MEDS ORDERED: Metoclopramide 10mg/2ml Inj ONE (23:02)
[2019-05-04] MEDS ORDERED: Ketorolac 30mg Inj ONE (23:02)
--- NOTE | 2019-05-04 23:14 | Diagnostic Imaging Report ---
CT HEAD Without Contrast: No acute hemorrhage, hydrocephalus, or mass effect. No acute fracture. Paranasal sinuses and mastoids are clear.
[2019-05-04 23:47] LABS: BASOPHILS % (AUTO) 0.7 % (0.0-2.0); EOSINOPHILS % (AUTO) 0.8 % (0.0-3.0); HEMATOCRIT 45.4 % (42.0-52.0); HEMOGLOBIN 15.7 G/DL (14.2-18.0); LYMPHOCYTES % (AUTO) 16.9 % (20.0-45.0); MEAN CORPUSCULAR VOLUME 84 FL (80-99); MONOCYTES % (AUTO) 8.9 % (1.0-10.0); NEUTROPHILS % (AUTO) 72.7 % (45.0-75.0); PLATELET COUNT 242 K/UL (150-450); RED BLOOD COUNT 5.41 M/UL (4.70-6.10); RED CELL DISTRIBUTION WIDTH 10.9 % (11.6-14.8); WHITE BLOOD COUNT 8.1 K/UL (4.8-10.8)
[2019-05-04 23:56] LABS: ANION GAP 7 mmol/L (5-15); BLOOD UREA NITROGEN 14 mg/dL (7-18); CALCIUM 9.3 MG/DL (8.5-10.1); CARBON DIOXIDE 31 MMOL/L (21-32); CHLORIDE 99 MMOL/L (98-107); CREATININE 1.2 MG/DL (0.55-1.30); SODIUM 137 MMOL/L (136-145)
[2019-05-05 00:01] LABS: ALANINE AMINOTRANSFERASE 45 U/L (12-78); ALBUMIN 3.9 G/DL (3.4-5.0); ALBUMIN/GLOBULIN RATIO 0.8 (1.0-2.7); ALKALINE PHOSPHATASE 71 U/L (46-116); ASPARTATE AMINO TRANSFERASE 23 U/L (15-37); BILIRUBIN,TOTAL 0.5 MG/DL (0.2-1.0)
--- NOTE | 2019-05-05 01:29 | NUR ---
Francie called , left her number [phone] for greens picker after discharge.
[2019-05-05] MEDS ORDERED: IBUPROFEN600 MG ORAL (02:49)
[2019-05-05 02:50] VITALS: BP 140/80
--- NOTE | 2019-05-05 02:50 | NUR ---
ER DISCHARGE NOTE: Patient is cleared to be discharged per ERMD, pt is aox4, on room air, with stable vital signs. pt was given dc and prescription instructions, pt was able to verbalize understanding, pt id band and iv site removed without complications. pt is able to ambulate with steady gait. pt took all belongings.
== END 2019-05-05 04:20 | disposition home or self-care (01) ==
LOC: EMR 05-05 02:19
DX: R51 Headache (principal)
CPT/HCPCS: 36415; 70450; 80053; 85025; 96361; 96374; 96375; J1200; J1885; J2765; Z7502; 99284; J7030; J8499